=== PATIENT | female | born 1970 | race Caucasian/White ===

== ENCOUNTER 2021-11-18 07:42 | Day surgery (SDC) | payer OTHER, SELFPAY ==
[2021-11-12 14:47] VITALS: BMI 36.2
[2021-11-18 07:45] VITALS: BP 110/69; PULSE 80; RESP 17; TEMP 36.6; O2SAT 96
[2021-11-18 07:56] LABS: Glucose, Whole Blood 158 mg/dL (60-115)
--- NOTE | 2021-11-18 08:15 | P.CONAN_ITS ---
[facility] Past Medical History Medical History Depression Elevated cholesterol HTN (hypertension) Hypothyroid Sleep apnea Type 2 diabetes mellitus Functional capacity: independent ambulation Patient : No Family History Family history of problems with anesthesia: No Surgical History Surgical History (Updated 11/12/21 @ 14:27 by Lay Rivas RN) H/O colonoscopy History of carpal tunnel release History of esophagogastroduodenoscopy (EGD) Hx of cholecystectomy Hx of laparoscopic gastric banding Social History Social History Patient Tobacco Use Status: Tobacco use Unknown Advance Directives: No Advance Directives Information Provided: Yes (brochure mailed) Advance Directives on File: No Meds Allergies Allergy/AdvReac Type Severity Reaction Status Date / Time amlodipine [From [facility]] Allergy Unknown Unknown Verified 11/12/21 14:44 ampicillin Allergy Unknown Unknown Verified 11/12/21 14:44 aspirin Allergy Unknown Unknown Verified 11/12/21 14:44 egg Allergy Unknown Unknown Verified 11/12/21 14:44 Penicillins Allergy Unknown Unknown Verified 11/12/21 14:44 Sulfa (Sulfonamide Allergy Unknown Unknown Verified 11/12/21 14:44 Antibiotics) control pills Allergy Unknown Unknown Uncoded 11/12/21 14:44 Home Medications Medication Instructions Recorded Confirmed Last Taken Type bupropion HCl 200 mg tablet,12 hr 1 tab PO BID 11/12/21 11/12/21 Unknown History sustained-release cholecalciferol (vitamin D3) 25 25 mcg PO DAILY 11/12/21 11/12/21 Unknown History mcg (1,000 unit) capsule (Vitamin D3) fenofibrate micronized 134 mg 1 cap PO DAILY 11/12/21 11/12/21 Unknown History capsule fluoxetine 20 mg capsule 1 cap PO DAILY 11/12/21 11/12/21 Unknown History lisinopril 40 mg tablet 1 tab PO DAILY 11/12/21 11/12/21 Unknown History loratadine 10 mg tablet 10 mg PO DAILY 11/12/21 11/12/21 Unknown History metformin 1,000 mg tablet 1 tab PO BID 11/12/21 11/12/21 Unknown History Exam Exam Date and Time: November 18, 2021 0815 Height,Weight and Vital Signs: Height 5 ft 1 in Weight 87.09 kg Last Vital Signs Temp 98 F 11/18/21 07:45 Pulse 80 11/18/21 07:45 Resp 17 11/18/21 07:45 BP 110/69 11/18/21 07:45 Pulse Ox 96 11/18/21 07:45 Pertinent Lab Results Pertinent Lab Results: Laboratory Tests 11/18/21 07:52 POC Glucose 158 H Airway Mallampati Class: III TM Dist: >3cm Neck ROM: Full Heart: RRR Lungs: CT Assessment and Plan Final Anesthetic Review Family History of Problems with Anesthesia: No ASA Class: III Final Preanesthetic Review: No Changes in Pt Med Stat, Consent Obtained/Reviewed and Anes Risks/Benef Reviewed Patient Risk: Low Procedure Risk: Low Anesthetic Plan Anesthetic Plan: MAC: Disposition: Standard PACU
--- NOTE | 2021-11-18 08:55 | P.HPSUR_ITS ---
Pre-Procedural Eval Section A Date of Service: 11/18/21 Section B Chief Complaint: screening,hx of colonic polyps Details of Present Illness: see h and p no changes Relevant Family History (Specify if Yes): No Relevant Social History: None Present Medications: see Short Stay Collaborative assessment Medical History: No relevant PMH History of Previous Operations: No relevant previous surgery Allergies: Allergies Allergy/AdvReac Type Severity Reaction Status Date / Time amlodipine [From [facility]] Allergy Unknown Unknown Verified 11/12/21 14:44 ampicillin Allergy Unknown Unknown Verified 11/12/21 14:44 aspirin Allergy Unknown Unknown Verified 11/12/21 14:44 egg Allergy Unknown Unknown Verified 11/12/21 14:44 Penicillins Allergy Unknown Unknown Verified 11/12/21 14:44 Sulfa (Sulfonamide Allergy Unknown Unknown Verified 11/12/21 14:44 Antibiotics) control pills Allergy Unknown Unknown Uncoded 11/12/21 14:44 Review of Systems Sugical H&P ROS: Negative: Constitution, Cardiovascular, Respiratory, Neurologi ethel, Psychiatric, Hem-Onc, Allergic/Immunologic, Gastrointestinal, Genitourinary, Musculoskeletal, Integumentary, Endocrine and Eyes/Ears/Nose/Throat Exam Surgical H&P Exam: Normal: HEENT, Normal: Heart, Normal: Lungs, Normal: Extremities, Normal: Abdomen, Normal: Skin and Normal: Neurological Plan Diagnosis/Plan: Unchanged I have reviewed the history and physical and performed a pertinent physical examination on my patient. No changes have occurred unless specified.
--- NOTE | 2021-11-18 09:20 | PM.OP ---
Brief Operative Note Date of Service: 11/18/21 Pre-op diagnosis: screening Post-op diagnosis: same (colon polyp) Procedure: colonoscopy Surgeon: Gilles Velzaco Anesthesia: MAC Was an Registered Private Duty Nurse used for this Procedure?: No Estimated blood loss (mL): 2 Pathology: other (polyp 60 cm) Condition: stable Disposition: PACU
[2021-11-18 09:24] VITALS: BP 83/51; PULSE 74; RESP 16; TEMP 36.8; O2SAT 94
[2021-11-18 09:39] VITALS: BP 106/56; PULSE 72; RESP 17; TEMP 36.3; O2SAT 97
--- NOTE | 2021-11-18 12:02 | OP_ITS ---
SURGEON: Gilles Velazco MD INDICATIONS: Colon cancer screening. PREOPERATIVE DIAGNOSIS: POSTOPERATIVE DIAGNOSIS: PROCEDURE PERFORMED: Colonoscopy to the terminal ileum with biopsy. ESTIMATED BLOOD LOSS: COMPLICATIONS: ANESTHESIA: ASSISTANTS: SPECIMENS: MEDICATIONS: Monitored anesthesia care. DESCRIPTION OF PROCEDURE: History and physical were performed. The risks and benefits of the procedure were explained to the patient. Informed consent was obtained. The patient was placed in left lateral decubitus position. A digital rectal exam was performed and was found to be normal. The Olympus pediatric video colonoscope was introduced into the rectum and advanced to the cecum without difficulty. The cecum was identified by transillumination, palpation, and identification of ileocecal valve. Examination was performed. The scope was removed. She tolerated the procedure well and was taken to recovery area in stable condition. FINDINGS: The terminal ileum was normal. The visualized colonic mucosa was normal. The quality of prep was good at 60 cm, was a less than 5 mm polyp, which was removed with biopsy forceps. No other polyps were identified. Retroflexed examination was normal. IMPRESSION: Colon polyp. RECOMMENDATION: Follow up biopsy results. MD BENITA Granger/ASHTYN / [id number]
--- NOTE | 2021-11-18 12:08 | HO.POSTANES ---
Post Anesthesia Evaluation Post Anesthesia Evaluation Vital Signs: Vital Signs Temp Pulse Resp BP Pulse Ox 11/18/21 09:39 97.4 F 72 17 106/56 L 97 11/18/21 09:24 98.2 F 74 16 83/51 L 94 11/18/21 07:45 98 F 80 17 110/69 96 Anesthesia: Monitored Mental Status: Awake Pain Control: Satisfactory Nausea/Vomiting: None Hydration: Adequate Anesthesia-Related Issues: No Anes. Related Issues
== END 2021-11-18 10:03 | disposition home or self-care (01) ==
PROVIDERS: PCP Internal Medicine; Visit Provider Internal Medicine Gastroenterology
PROC: 0DJD8ZZ Inspection of Lower Intestinal Tract, Via Natural or Artificial Opening Endoscopic (ICD-10-PCS; CPT 45378; principal; 2021-11-18 09:00)
DX: Z12.11 Encounter for screening for malignant neoplasm of colon (principal); Z86.010 Personal history of colon polyps; Z83.71 Family history of colonic polyps; D12.4 Benign neoplasm of descending colon; G47.33 Obstructive sleep apnea (adult) (pediatric); I10 Essential (primary) hypertension; E03.9 Hypothyroidism, unspecified; E78.00 Pure hypercholesterolemia, unspecified; F32.9 Major depressive disorder, single episode, unspecified; E11.9 Type 2 diabetes mellitus without complications; Z79.84 Long term (current) use of oral hypoglycemic drugs; Z79.899 Other long term (current) drug therapy; Z98.84 Bariatric surgery status; Z88.0 Allergy status to penicillin; Z88.2 Allergy status to sulfonamides; Z88.8 Allergy status to other drugs, medicaments and biological substances; Z90.49 Acquired absence of other specified parts of digestive tract
CPT/HCPCS: 45380; 82947; 88305